=== PATIENT | female | born 1950 | race Caucasian/White ===

== ENCOUNTER 2021-01-12 14:48 | Emergency (ER) | payer MEDICARE, SELFPAY ==
[2021-01-12 15:07] VITALS: BP 134/85; PULSE 56; RESP 16; TEMP 36.1; O2SAT 99; BMI 25.6
--- NOTE | 2021-01-12 15:16 | XRR_ITS ---
PROCEDURE INFORMATION: Exam: XR Right Knee Exam date and time: 01/12/2021 3:16 PM Age: 70 years old Clinical indication: Injury or trauma; Fall; Blunt trauma; Right; Injury date: 01-12-21; Prior surgery; Surgery date: 6+ months; Patient HX: PT tripped over concrete parking barrier . landed on RT knee. Unable to bear weight; Additional info: Injury/pain TECHNIQUE: Imaging protocol: XR Right knee. Views: 3 views. COMPARISON: No relevant prior studies available. FINDINGS: Bones/joints: There is a comminuted fracture involving the lower aspect of the patella. Suprapatellar bursa effusion is seen. Soft tissues: Soft tissue edema is seen in the anterior aspect of the knee. XR/XR knee RT 3V* [id number] IMPRESSION: 1. Comminuted fracture anterior inferior patella 2. Suprapatellar bursa effusion 3. Soft tissue edema anterior aspect of the knee Radiation Dose CTDIVOL = (mGy): DLP = (mGy-cm)
--- NOTE | 2021-01-12 15:44 | W.ED.LOWEXIN ---
HPI - Extremity Injury (Lower) General: Chief Complaint: Extremity Injury, Lower Stated Complaint: Injury to right knee from trip Time Seen by Provider: 01/12/21 15:16 Source: patient Mode of arrival: ambulatory Limitations: no limitations History of Present Illness: HPI Narrative: Patient is a nice 70-year-old female who presents to ED today for evaluation of a right knee injury. 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 Patient tells me she is not able to bear weight secondary to discomfort. She has no other injuries or complaints related to the fall at this time. complaint: knee injury Onset (ago): hour(s) Injury: Right: knee Type of Injury: blunt Place: street/outdoors Severity: moderate Relieving factors: immobilization Exacerbating factors: weight bearing, movement and palpation Context: fall Associated symptoms: Reports inability to bear weight Other symptoms: none Review of Systems Musc: Reports: joint pain (R knee), joint swelling (R knee) and limited range of motion Skin/Breast: Reports: other (abrasion anterior R knee) Neuro: Reports: difficulty walking (secondary to pain); Denies: numbness in extremities, weakness in extremities or sensory changes Physical Exam Const: COMMON NORMALS: no acute distress, average body habitus, patient oriented x3, no limitations, healthy appearing, alert and well nourished Extremity: GENERAL: Yes normal exam except as noted RIGHT LOWER EXTREMITY: Yes knee joint (TTP directly over anterior patella; mild joint swelling) Right knee: Yes neurovascular exam (normal) Neuro: COMMON NORMALS: patient oriented x3, moves all extremities, no focal motor deficits and no sensory deficits noted SENSORIUM/ORIENTATION: Yes alert GAIT: Yes Unable to assess gait Skin: NARRATIVE SKIN EXAM: very mild abrasion overlying R anterior patella; otherwise no other pertinent skin findings Course Vital Signs: Vital signs: Vital Signs Temperature 97.0 F L 01/12/21 15:07 Pulse Rate 56 L 01/12/21 15:07 Respiratory Rate 16 01/12/21 15:07 Blood Pressure 134/85 01/12/21 15:07 Pulse Oximetry 99 01/12/21 15:07 MDM - Extremity Injury (Lower) MDM Narrative: Medical decision making narrative: Patient has a right patellar fracture. She states she sees an orthopedic provider in [place], [place] (Dr. Mckeon) that she would like to follow-up with. Patient will be placed in a knee immobilizer. She has crutches at home to be non-weightbearing. Will be given XR disc with images. Recommend she contact their office tomorrow for follow-up appointment. Imaging Data^: XR R knee: Radiologist's impression: [address] [place] [address] XRay Report Signed Patient: Jaquelin Mae Unit #: [id number] : 1950 Age/Sex: 70 / F ADM Date: 01/12/21 Loc: ER Room/Bed: Attending Dr: Ordering Provider/Ordering MD: Brittnee Bush Date of Service: 01/12/21 Procedure(s): XR knee RT 3V* [id number] Accession Number(s): [id number] Report Number: [id number] PROCEDURE INFORMATION: Exam: XR Right Knee Exam date and time: 01/12/2021 3:16 PM Age: 70 years old Clinical indication: Injury or trauma; Fall; Blunt trauma; Right; Injury date: 01-12-21; Prior surgery; Surgery date: 6+ months; Patient HX: PT tripped over concrete parking barrier . landed on RT knee. Unable to bear weight; Additional info: Injury/pain TECHNIQUE: Imaging protocol: XR Right knee. Views: 3 views. COMPARISON: No relevant prior studies available. FINDINGS: Bones/joints: There is a comminuted fracture involving the lower aspect of the patella. Suprapatellar bursa effusion is seen. Soft tissues: Soft tissue edema is seen in the anterior aspect of the knee. XR/XR knee RT 3V* [id number] IMPRESSION: 1. Comminuted fracture anterior inferior patella 2. Suprapatellar bursa effusion 3. Soft tissue edema anterior aspect of the knee Radiation Dose CTDIVOL = (mGy): DLP = (mGy-cm) Dictated By: Evaristo Cerda Signed By: Evaristo Cerda Signed Date/Time: 01/12/21 1555 DD/ 1516 Discharge Plan Discharge Patient Disposition: Home Clinical Impression: Closed fracture of right patella Qualifiers: Encounter type: initial encounter Fracture morphology: comminuted Fracture alignment: nondisplaced Qualified Code(s): S82.044A - Nondisplaced comminuted fracture of right patella, initial encounter for closed fracture Condition: Stable Prescriptions: New hydrocodone-acetaminophen 5-325 mg tablet 1 tab PO Q6H PRN (Reason: pain) Qty: 20 RF: 0 Discharge Orders: Discharge ED (Routine); Ordered 01/12/21 Ordered By: Brittnee Bush Patient Instructions: Patellar Fracture (ED), Opioid Safety Activity Restrictions/Additional Instructions: [facility] is committed to fighting the nationwide opiate epidemic. We are providing ALL patients with information regarding opiate safety. If you received opiate pain medication during your stay or if you received a prescription for opiate pain medication-please review this handout. If not, you may disregard. Thank you. As we discussed please contact your orthopedic provider's office tomorrow to schedule a follow-up visit. You may bring the x-ray disc with you for imaging review although he they are likely to repeat these in office. Wear knee brace at all times apart from bathing and you need to be completely non-weightbearing until told otherwise by orthopedics. Coding Level of Care Code ED Restrike Hammer Operator for Charles Fwd Exam Expanded Problem Focused
== END 2021-01-12 16:57 | disposition home or self-care (01) ==
PROVIDERS: Emergency Provider Physician Assistant
DX: S82.044A Nondisplaced comminuted fracture of right patella, initial encounter for closed fracture (principal); W01.198A Fall on same level from slipping, tripping and stumbling with subsequent striking against other object, initial encounter; Y92.410 Unspecified street and highway as the place of occurrence of the external cause
CPT/HCPCS: 29530; 73562; 99282

== ENCOUNTER 2023-03-06 20:23 | Emergency (ER) | payer MEDICARE, OTHER, SELFPAY ==
--- NOTE | 2023-03-06 20:25 | XRR_ITS ---
PROCEDURE INFORMATION: Exam: XR Chest Exam date and time: 03/06/2023 8:37 PM Age: 72 years old Clinical indication: Pain; Chest pressure and other: Dizzy; Additional info: Cp TECHNIQUE: Imaging protocol: Radiologic exam of the chest. Views: 1 view. COMPARISON: No relevant prior studies available. FINDINGS: Lungs: Unremarkable. No consolidation. Pleural spaces: Unremarkable. No pleural effusion. No pneumothorax. Heart/Mediastinum: Unremarkable. No cardiomegaly. Bones/joints: Unremarkable. XR/XR chest 1V portable [id number] IMPRESSION: No acute findings.
[2023-03-06 20:33] VITALS: BP 185/84; PULSE 55; O2SAT 100; BMI 26.5
--- NOTE | 2023-03-06 20:36 | ECG_ITS ---
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
--- NOTE | 2023-03-06 20:36 | ECG_ITS ---
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 Measurements Intervals [place] Rate: 47 P: 71 NV: 167 QRS: 54 QRSD: 92 T: 36 QT: 441 QTc: 393 Interpretive Statements SINUS BRADYCARDIA LOW QRS VOLTAGE IN PRECORDIAL LEADS [QRS DEFLECTION < 1.0 mV IN CHEST LEADS] No previous ECG available for comparison Electronically Signed On 03-07-2023 21:39:03 TUBE ROOM CASHIER by Karen Zuluaga M.D. [email or web address]
--- NOTE | 2023-03-06 20:38 | ED_ITS ---
HPI - Arrhythmia/Palpitations 2 General: Chief Complaint: Dizziness Stated Complaint: BP\Dizzy\Elavated Heart Rate Time Seen by Provider: 03/06/23 20:29 Source: patient Mode of arrival: ambulatory Limitations: no limitations History of Present Illness: 72-year-old female states that prior to arrival she is having some bradycardia at home along with hypertension with blood pressure in the 190s. States that her head felt fuzzy and she is having some dizziness. States her symptoms have improved she ambulated to her room with no difficulties she denies any headache denies chest pain she does have a history of A-fib and is on Rythmol along with atenolol. Associated symptoms: Deny nausea or vomiting Review of Systems 2 Const: Denies: fever(s), chills, body aches or change in appetite ENMT: Denies: throat pain or dental pain Card: Reports: irregular heart rhythm; Denies: chest pain Resp: Denies: dyspnea GI: Denies: abdominal pain, nausea, vomiting or diarrhea Musc: Denies: neck pain or back pain Skin/Breast: Denies: rash Neuro: Reports: dizziness; Denies: headache(s) Physical Exam 2 Const: COMMON NORMALS: no acute distress, patient oriented x3 and healthy appearing HENMT: COMMON NORMALS: normocephalic and atraumatic HEAD & SCALP: n ormocephalic and atraumatic Neck/C-Spine: COMMON NORMALS: full ROM and supple Chest: COMMONS NORMALS: normal inspection of the chest and normal palpation of entire chest wall Resp: COMMON NORMALS: normal respiratory effort, No retractions, No use of accessory muscles and clear to auscultation bilaterally AUSCULTATION: clear to auscultation bilaterally Cardio: COMMON NORMALS: regular rhythm and No murmurs present (Cardio) R ATE: bradycardic RHYTHM: regular rhythm GI: COMMON NORMALS: Normal to inspection, nondistended, normoactive bowel sounds present, Soft to palpation, non-tender and no masses PALPATION: Yes Soft to palpation Extremity: COMMON NORMALS: normal to inspection and full ROM Neuro: COMMON NORMALS: patient oriented x3, moves all extremities and no focal motor deficits CRANIAL NERVES: Yes CN normal except as noted SPEECH: s peech normal GAIT: Yes Normal gait present MOTOR EXAM: 5/5 motor strength present throughout Psych: COMMON NORMALS: mental status grossly normal, Normal thought process present and cooperative THOUGHT PROCESS: Normal thought process present Skin: COMMON NORMALS: no rashes or lesions noted and no wounds GENERAL SKIN EXAM: no rashes or lesions noted Course 2 Vital Signs: Vital signs: Vital Signs Pulse Rate 58 L 03/06/23 22:00 Respiratory Rate 16 03/06/23 22:00 Blood Pressure 161/68 03/06/23 22:00 Pulse Oximetry 99 03/06/23 22:00 Oxygen Delivery Me thod Room Air 03/06/23 20:33 MDM - Arrhythmia/Palpitations Medical Decision Making Patient presents here with hypertension that is improved here she had some slight dizziness no signs of stroke patient's been able ambulate well her symptoms have resolved here. She is to monitor blood pressure at home follow-up with her dietetic technician registered in 4 to 5 days and return if worsening she understands agrees to plan. Medical Records I reviewed the patient's medical records. Lab Data I reviewed the patient's lab results. 03/06/23 20:44 03/06/23 20:44 Radiology Impressions Chest X-Ray 03/06/23 20:25 IMPRESSION: No acute findings. Head CT 03/06/23 20:47 IMPRESSION: No acute intracranial abnormality. Laboratory Results WBC 8.86 10^3/uL (3.29-11.43) 03/06/23 20:44 RBC 4.27 10^6/uL (3.85-5.65) 03/06/23 20:44 Hgb 13.40 g/dL (11.27-16.99) 03/06/23 20:44 Hct 41.0 % (36-47) 03/06/23 20:44 MCV 96.0 fl (85-98) 03/06/23 20:44 MCH 31.4 pg (27-33) 03/06/23 20:44 MCHC 32.7 g/dL (30-55) 03/06/23 20:44 RDW 13.4 % (12.1-15.1) 03/06/23 20:44 Plt Count 237 10^3/cmm (157-399) 03/06/23 20:44 MPV 9.3 fL (7.4-10.4) 03/06/23 20:44 Neut % (Auto) 61.2 % 03/06/23 20:44 Lymph % (Auto) 25.8 % 03/06/23 20:44 Howell % (Auto) 8.1 % 03/06/23 20:44 Eos % (Auto) 3.5 % 03/06/23 20:44 Baso % (Auto) 1.1 % 03/06/23 20:44 Neut # (Auto) 5.41 10^3/uL (1.8-7.7) 03/06/23 20:44 Lymph # (Auto) 2.3 10^3/uL (0.8-4.8) 03/06/23 20:44 Howell # (Auto) 0.7 10^3/uL (0.2-0.9) 03/06/23 20:44 Eos # (Auto) 0.3 10^3/uL (0.0-0.8) 03/06/23 20:44 Baso # (Auto) 0.1 10^3/uL (0.0-0.1) 03/06/23 20:44 Nucleated RBC % (auto) 0 % 03/06/23 20:44 Nucleated RBCs # 0.0 /100WBC 03/06/23 20:44 Sodium 138 mmol/L (136-145) 03/06/23 20:44 Potassium 4.0 mmol/L (3.5-5.1) 03/06/23 20:44 Chloride 101 mmol/L (98-107) 03/06/23 20:44 Carbon Dioxide 25 mmol/L (22-29) 03/06/23 20:44 Anion Gap 16.0 (5-19) 03/06/23 20:44 BUN 24 mg/dL (8-23) H 03/06/23 20:44 Creatinine 1.1 mg/dL (0.5-0.9) H 03/06/23 20:44 GFR Calculation Not Reportable 03/06/23 20:44 Glucose 102 mg/dL (65-115) 03/06/23 20:44 Calculated Osmolality 290 mOsm/kg (285-295) 03/06/23 20:44 Calcium 9.7 mg/dL (8.5-10.5) 03/06/23 20:44 Total Bilirubin 0.2 mg/dL (0.15-1.2) 03/06/23 20:44 AST 16 U/L (0-32) 03/06/23 20:44 ALT 14 U/L (0-33) 03/06/23 20:44 Alkaline Phosphatase 53 U/L (35-105) 03/06/23 20:44 Troponin T Baseline < 6 ng/L (0-10) 03/06/23 20:44 Total Protein 6.9 g/dL (6.6-8.7) 03/06/23 20:44 Albumin 4.1 g/dL (3.5-5.2) 03/06/23 20:44 Globulin 2.8 g/dL (1.3-4.6) 03/06/23 20:44 All radiology interpretation(s) finalized by discharge EKG Data EKG 1: I personally reviewed and interpreted this EKG as follows: EKG interpretation date: 03/06/23 EKG interpretation time: 20:36 Interpretation: sinus [place] hr [address] or t wave abnormalities qrs 92 qtc 405 Other EKG comments: Chest X-Ray 03/06/23 20:25 IMPRESSION: No acute findings. Head CT 03/06/23 20:47 IMPRESSION: No acute intracranial abnormality. Discharge Plan Discharge Patient Disposition: Home Clinical Impression: Dizziness Hypertension Qualifiers: Hypertension type: unspecified Qualified Code(s): I10 - Essential (primary) hypertension Condition: Stable Prescriptions: No Action hydrocodone-acetaminophen 5-325 mg tablet 1 tab PO Q6H PRN (Reason: pain) Qty: 20 0RF Discharge Orders: Discharge ED (Routine); Ordered 03/06/23 Ordered By: Pal Dumas Referrals: Mike Glover MD [Primary Care Provider] - 1-3 days Discharge Diet: Advance as tolerated Discharge Activity: Use walker/crutches as instructed Patient Instructions: Hypertension (ED), Dizziness (ED) Coding Level of Care Code ED Half Sole Fitter for Chg Lisbet
--- NOTE | 2023-03-06 20:47 | CTR_ITS ---
PROCEDURE INFORMATION: Exam: CT Head Without Contrast Exam date and time: 03/06/2023 9:51 PM Age: 72 years old Clinical indication: Dizziness; Additional info: Dizzy TECHNIQUE: Imaging protocol: Computed tomography of the head without contrast. Radiation optimization: All CT scans at this facility use at least one of these dose optimization techniques: automated exposure control; mA and/or kV adjustment per patient size (includes targeted exams where dose is matched to clinical indication); or iterative reconstruction. REPORTING DATA: Count of CT and Cardiac NM exams in prior 12 months: This patient has received 0 known CTs and 0 known cardiac nuclear medicine studies in the 12 months prior to the current study. COMPARISON: No relevant prior studies available. RADIATION DOSE METRICS: Total DLP (mGy-cm): 943.18 FINDINGS: Brain: Normal. No hemorrhage. Unremarkable white matter. No mass effect. Cerebral ventricles: No ventriculomegaly. Paranasal sinuses: Visualized sinuses are unremarkable. No fluid levels. Mastoid air cells: Visualized mastoid air cells are well aerated. Bones/joints: Unremarkable. No acute fracture. Soft tissues: Unremarkable. CT/CT head wo con* [id number] IMPRESSION: No acute intracranial abnormality.
[2023-03-06] MEDS: meclizine 25 mg tablet 50 MG PO (20:57)
[2023-03-06] MEDS: ondansetron 2 mg/ML SDV 2 mL 4 MG IVP (20:57)
[2023-03-06] MEDS: hyDRALAzine 20 mg/mL INJ 1 mL 10 MG IVP (20:57)
[2023-03-06 21:06] LABS: Troponin(5th) Baseline < 6 ng/L (0-10)
[2023-03-06 21:07] VITALS: BP 167/64; PULSE 56; RESP 16; O2SAT 98
[2023-03-06 21:07] LABS: Alanine Aminotransferase 14 U/L (0-33); Albumin Level 4.1 g/dL (3.5-5.2); Alkaline Phosphatase 53 U/L (35-105); Aspartate Amino Transferase 16 U/L (0-32); Blood Urea Nitrogen 24 mg/dL (8-23); Calcium 9.7 mg/dL (8.5-10.5); Carbon Dioxide 25 mmol/L (22-29); Chloride 101 mmol/L (98-107); Globulin 2.8 g/dL (1.3-4.6); Glucose 102 mg/dL (65-115); Osmolality Calculated 290 mOsm/kg (285-295); Sodium 138 mmol/L (136-145); Total Bilirubin 0.2 mg/dL (0.15-1.2); Total Protein 6.9 g/dL (6.6-8.7)
[2023-03-06 21:15] LABS: Basophils # 0.1 10^3/uL (0.0-0.1); Basophils % 1.1 %; Eosinophils # 0.3 10^3/uL (0.0-0.8); Eosinophils % 3.5 %; Lymphocytes # 2.3 10^3/uL (0.8-4.8); Lymphocytes % 25.8 %; Mean Corpuscular HGB Conc 32.7 g/dL (30-55); Mean Corpuscular Hemoglobin 31.4 pg (27-33); Mean Platelet Volume 9.3 fL (7.4-10.4); Monocytes # 0.7 10^3/uL (0.2-0.9); Monocytes % 8.1 %; Neutrophils # 5.41 10^3/uL (1.8-7.7); Neutrophils % 61.2 %; Nucleated Red Blood Cells % 0 %; Platelet Count 237 10^3/cmm (157-399); Red Blood Count 4.27 10^6/uL (3.85-5.65); Red Cell Distribution Width 13.4 % (12.1-15.1); White Blood Count 8.86 10^3/uL (3.29-11.43)
[2023-03-06 21:22] VITALS: BP 129/61; PULSE 56; RESP 16; O2SAT 96
[2023-03-06 22:00] VITALS: BP 161/68; PULSE 58; RESP 16; O2SAT 99
[2023-03-06 22:30] VITALS: BP 153/61; PULSE 58; RESP 16; O2SAT 99
== END 2023-03-06 22:31 | disposition home or self-care (01) ==
PROVIDERS: Emergency Provider Emergency Medicine; PCP Family Medicine
DX: R42 Dizziness and giddiness (principal); I10 Essential (primary) hypertension
CPT/HCPCS: 70450; 71045; 80053; 84484; 85025; 93005; 96374; 96375; 99285; J0360; J2405; J8597

== ENCOUNTER → 2023-08-11 13:00 | Outpatient (BNVA) | payer MEDICARE, OTHER, SELFPAY | PROVIDERS: PCP Family Medicine; Visit Provider Family Medicine | DX: I10 Essential (primary) hypertension (principal) | CPT/HCPCS: 80053; 80061; 84443; 85025 ==